=== PATIENT | male | born 1975 | race Caucasian/White ===

== ENCOUNTER → 2019-12-02 | Outpatient (CLI) | payer OTHER ==
--- NOTE | 2019-12-02 15:51 | RAD ---
EXAM: Cervical spine, 5 views. HISTORY: Pain. COMPARISON: None. FINDINGS: 5 views of the cervical spine are obtained. There is degenerative endplate remodeling with disc space narrowing at C3-C7. There is multilevel facet arthropathy. No fracture is seen. IMPRESSION: 1. Multilevel degenerative change. 2. No acute osseous finding. Electronically signed by: Michell Rascon MD (12/02/2019 3:48 PM) [id number]
== END | disposition home or self-care (01) ==
LOC: RAD 09:51
PROVIDERS: ATTEND Family Medicine
DX: M47.812 Spondylosis without myelopathy or radiculopathy, cervical region (principal); M48.02 Spinal stenosis, cervical region
CPT/HCPCS: 72050